=== PATIENT | female | born 1990 | race Caucasian/White ===

== ENCOUNTER 2018-04-27 10:59 | Emergency (ER) | payer OTHER, SELFPAY ==
[2018-04-27 11:06] VITALS: BP 111/77; PULSE 73; RESP 15; TEMP 36.6; O2SAT 100; BMI 20.1
--- NOTE | 2018-04-27 12:21 | ED.SKABFB ---
HPI - Skin/Abscess/Foreign Bdy <RUDI Gomez - Last Filed: 04/27/18 13:20> General Chief complaint: Skin/Abscess/Foreign Body Stated complaint: RASH ON LEFT SIDE OF FACE Time Seen by Provider: 04/27/18 11:49 Mode of arrival: ambulatory Limitations: no limitations History of Present Illness HPI narrative: lesions to face that started a few days ago, and appear to be getting worse, with yellow crusts, started as dry skin and flaking and now oozing some fluid and getting crusty, never had this before, no pain, no itch, no other spots, only on L side face/cheek complaint: rash Onset (ago): day(s) Location: face Severity: mild Relieving factors: none Exacerbating factors: none Context: none Associated symptoms: denies other symptoms Treatments prior to arrival: OTC topical medication and other (apple cider vinegar) Related Data Previous Rx's Medication Instructions Recorded mupirocin calcium [Bactroban] 1 applictn TOP BID #15 gram 04/27/18 sulfamethoxazole-trimethoprim 1 tab PO BID #14 tab 04/27/18 [Bactrim DS] Allergies Allergy/AdvReac Type Severity Reaction Status Date / Time No Known Drug Allergies Allergy Verified 04/27/18 11:06 Review of Systems <RUDI Gomez - Last Filed: 04/27/18 13:20> Constitutional Reports as per HPI, Reports system reviewed and no additional complaints, except as docu and Denies headache(s) Eyes Reports system reviewed and no additional complaints, except as docu ENT Ears, Nose, Mouth, and Throat: Denies facial pain, Denies headache(s), Denies neck mass, Denies neck pain and Denies nose pain Cardiovascular Denies dyspnea Respiratory Denies dyspnea Musculoskeletal Denies neck pain Integumentary/Breasts Reports as per HPI Neurologic Denies headache(s) Exam <RUDI Gomez - Last Filed: 04/27/18 13:20> Initial Vital Signs Initial Vital Signs: Vital Signs Temperature 98 F 04/27/18 11:06 Pulse Rate 73 04/27/18 11:06 Respiratory Rate 15 04/27/18 11:06 Blood Pressure 111/77 04/27/18 11:06 Pulse Oximetry 100 04/27/18 11:06 Const General: cooperative, healthy appearing, comfortable, well developed and well groomed Nutritional Appearance: average body habitus Orientation: alert, awake and oriented x3 HENMT Head: normal to inspection Ears: hearing grossly normal bilaterally and external ears normal Nose: external nose normal Face and sinus: normal facial exam Teeth and gingiva: dentition normal Eyes General: appearance normal, both eyes and all related structures Eyelids: eyelids normal Conjunctivae: conjunctivae normal Sclera: sclerae normal Cornea: corneas normal Pupils: PERRL Neck Neck: normal visual inspection and full ROM Resp Effort & Inspection: normal respiratory effort and able to speak in complete sentences Back/Spine/Pelvis Cervical Spine: cervical ROM normal Thoracic/Lumbar Spine: thoraco-lumbar ROM normal Skin General: crusts (x2 spots noted to L side of face, cheek bone area, circular with mild erythema and yellow crusts present, macular) Neuro General: alert, awake and oriented x3 Cognition: normal cognition Speech: speech normal Gait: normal gait Motor: muscle tone normal throughout Sensory Exam: no sensory deficits noted Extrem General: normal to inspection and full ROM Psych Appearance: grossly normal and well kempt Mental Status: mental status grossly normal Speech and Movement: speech and movement normal Mood: congruent mood Affect: normal affect Attitude: cooperative Thought Process: normal Thought Content: normal Judgment: judgment good <Mary Conner DO - Last Filed: 04/28/18 07:43> Initial Vital Signs Initial Vital Signs: Vital Signs Temperature 98 F 04/27/18 11:06 Pulse Rate 73 04/27/18 11:06 Respiratory Rate 15 04/27/18 11:06 Blood Pressure 111/77 04/27/18 11:06 Pulse Oximetry 100 04/27/18 11:06 Course <RUDI Gomez - Last Filed: 04/27/18 13:20> Vital Signs - 8 hr 04/27/18 11:06 04/27/18 13:07 Temperature 98 F Pulse Rate 73 75 Respiratory Rate 15 14 Blood Pressure 111/77 Blood Pressure [Right Arm] 102/82 Pulse Oximetry 100 99 <Mary Conner DO - Last Filed: 04/28/18 07:43> Vital Signs - 8 hr 04/27/18 11:06 04/27/18 13:07 Temperature 98 F Pulse Rate 73 75 Respiratory Rate 15 14 Blood Pressure 111/77 Blood Pressure [Right Arm] 102/82 Pulse Oximetry 100 99 MDM - Skin/Abscess/Foreign Bdy <RUDI Gomez - Last Filed: 04/27/18 13:20> Differential Diagnosis Likely abscess of skin or subcutaneous tissue, viral exanthem, cellulitis, eczema, insect bites, impetigo and contact dermatitis Discharge Plan Departure Patient Disposition: Home Clinical Impression: Impetigo Discharge Date/Time: 04/27/18 13:10 Interventions: ED Discharge Assessment Last Done: 04/27/18 13:10 Instructions: You, DI for Impetigo Activity Restrictions/Additional Instructions: Oral antibiotics not medically necessary at this time, given in case you feel wounds are getting worse, as we discussed. Prescriptions: New sulfamethoxazole-trimethoprim [Bactrim DS] 800-160 mg tablet 1 tab PO BID Qty: 14 RF: 0 mupirocin calcium [Bactroban] 2 % cream 1 applictn TOP BID Qty: 15 RF: 0 Referrals: Jostin Pardo MD [Non-Staff] - (in 3-5 days as needed.) <Mary Conner DO - Last Filed: 04/28/18 07:43> Cosign ED Attending Cosignature Attestation: I was immediately available in the department for consultation. Documentation has been reviewed. I agree with assessment and plan.
[2018-04-27 13:07] VITALS: BP 102/82; PULSE 75; RESP 14; O2SAT 99
== END 2018-04-27 13:10 | disposition home or self-care (01) ==
PROVIDERS: Emergency Provider Nurse Practitioner
DX: L01.00 Impetigo, unspecified (principal)
CPT/HCPCS: 99282

== ENCOUNTER → 2018-06-04 15:34 | Outpatient (CLI) | payer OTHER, SELFPAY | DX: Z23 Encounter for immunization (principal) | CPT/HCPCS: 90471; 90686 ==

== ENCOUNTER → 2019-01-22 12:00 | Outpatient (CLI) | payer OTHER, SELFPAY ==
[2019-01-22 12:38] LABS: Add Manual Diff / Slide Review NO; Basophils Absolute Auto 100 /uL (0-100); Basophils Percent Auto 0.9 % (0-2); Eosinophils Absolute Auto 100 /uL (0-450); Hematocrit 40.6 % (36-46); Hemoglobin 14.1 g/dL (12.0-16.0); Lymphocytes Absolute Auto 1900 /uL (1100-4500); Lymphocytes Percent Auto 23.4 % (25-40); Mean Corpuscular HGB Conc 34.7 % (30-36); Mean Corpuscular Hemoglobin 30.6 PG (26-34); Monocytes Absolute Auto 600 /uL (0-900); Monocytes Percent Auto 7.4 % (3-14); Neutrophils Absolute Auto 5400 /uL (1500-7000); Neutrophils Percent Auto 67.3 % (50-75); Platelet Count 254 X10^3/uL (150-400); Red Blood Cell Count 4.61 X10^6/uL (4.0-5.2); Red Cell Distribution Width 12.4 % (11.6-14.8)
[2019-01-22 12:41] LABS: Appearance Urine UA CLOUDY; Bilirubin Urine UA NEGATIVE (NEGATIVE); Color Urine UA YELLOW; Glucose Urine UA NEGATIVE (Negative); Ketones Urine UA NEGATIVE (NEGATIVE); Leukocyte Esterase Urine UA NEGATIVE (NEGATIVE); Nitrite Urine UA NEGATIVE (Negative); Occult Blood Urine UA NEGATIVE (Negative); Protein Urine UA NEGATIVE (Negative); Urobilinogen Urine UA 0.2 E.U./dL (0.2); pH Urine UA 7.5 (4.5-8.0)
[2019-01-22 16:50] LABS: Hepatitis B Surface Antigen NEGATIVE s/c (NEGATIVE); Rubella Antibody IgG 56.2 IU/mL (>15)
[2019-01-22 17:01] LABS: HIV 1 and 2 Antibody NEGATIVE (NEGATIVE); Hep C Virus Ab w/Reflex Quant NEGATIVE s/c (NEGATIVE)
[2019-01-26 22:23] LABS: RPR Screen Nonreactive (Nonreactive)
== END ==
PROVIDERS: PCP Family Medicine; Visit Provider Family Medicine
DX: Z34.81 Encounter for supervision of other normal pregnancy, first trimester (principal)
CPT/HCPCS: 36415; 80055; 81003; 86703; 86787; 86803; 86850; 86900; 86901; 87086

== ENCOUNTER 2019-01-25 15:14 | Emergency (ER) | payer OTHER, SELFPAY ==
[2019-01-25 15:19] VITALS: BP 103/65; PULSE 84; RESP 18; TEMP 36.8; O2SAT 99
--- NOTE | 2019-01-25 15:26 | ED.PREGNANCY ---
HPI - <RUDI Giles - Last Filed: 01/25/19 20:34> General Chief complaint: Vaginal Bleeding Stated complaint: 9 weeks /bleeding Time Seen by Provider: 01/25/19 15:20 Source: patient Mode of arrival: ambulatory Limitations: no limitations History of Present Illness HPI Narrative: A healthy 28-year-old is currently 9 weeks , presents emergency department today complaining of significant vaginal bleeding that suddenly started today with mild abdominal cramping. She states she has saturated 3 pads in the last hour, and thinks she is having a miscarriage. Has associated nausea but this has been consistent throughout the . She reports her last menstrual period was November 22, 2018, she then describes she had experienced some spine, likely implantation bleeding about 4 weeks later. She has a history of a D&C after her last due to retained fragments. Denies any other complications or history of previous miscarriages. She denies any dizziness, weakness, fevers, dysuria, headaches, shortness of breath, chest pain, vomiting or fevers. MD Complaint: vaginal bleeding Onset (ago): hour(s) Pain Consistency: constant Location: pelvis and abdomen Severity: moderate Severity scale (1-10): 4 Quality: Cramping Relieving factors: none Exacerbating factors: none Associated symptoms: nausea Vaginal bleeding: heavy Date of Last Menstrual Period: 11/21/18 Patient : Yes Related Data Home Medications Medication Instructions Recorded Confirmed cholecalciferol (vitamin D3) 5,000 5,000 unit PO DAILY 01/21/19 01/26/19 unit capsule 1 tab PO DAILY 01/21/19 01/26/19 vitamin,calcium,rwkhheci-rfug-[id number] acid tablet Allergies Allergy/AdvReac Type Severity Reaction Status Date / Time gluten AdvReac Intermediate GI upset Verified 01/26/19 15:37 dairy AdvReac Intermediate GI upset Uncoded 01/26/19 15:37 Review of Systems <RUDI Giles - Last Filed: 01/25/19 20:34> Review of Systems REVIEW OF SYSTEMS: GENERAL: Denies fever or chills. HENT: No head trauma, hearing loss or sore throat. EYES: No loss of vision, double vision, eye pain, or irritation. CARDIOVASCULAR: No chest pain or syncope. RESPIRATORY: No shortness of breath or cough. GASTROINTESTINAL: Patient complains of nausea, see HPI. GENITOURINARY: No flank pain or dysuria. Patient complains of vaginal bleeding is currently , see HPI. MUSCULOSKELETAL: No pain, weakness, or deformities. INTEGUMENTARY: No rash, lesions, or pruritus. NEURO: No numbness, tingling, memory loss, or confusion. PSYCH: No behavior or mood changes. PMFSH - <GAIL GilesP - Last Filed: 01/25/19 20:34> Past Medical History Medical history: Reports non-contributory Date of Last Menstrual Period: 11/21/18 Patient : Yes Family history: Reports no significant family history Exam <RUDI Giles - Last Filed: 01/25/19 20:34> Initial Vital Signs Initial Vital Signs: Vital Signs Temperature 98.2 F 01/25/19 15:19 Pulse Rate 84 01/25/19 15:19 Respiratory Rate 18 01/25/19 15:19 Blood Pressure 103/65 01/25/19 15:19 Pulse Oximetry 99 01/25/19 15:19 PHYSICAL EXAMINATION: GENERAL: Well groomed, alert, and cooperative. Patient is tearful during history and exam. Answers questions promptly and appropriately. Vital signs noted. HENT: Normocephalic, atraumatic. EYES: Conjunctiva pink, sclera white, no periorbital swelling. CARDIOVASCULAR: S1 and S2 sounds normal. Regular rate and rhythm, no murmurs, clicks, or bruits. No pedal edema. RESPIRATORY: Normal respiratory rate, trachea midline, airway patent. No stridor, nasal flaring or accessory muscle use. Lungs are clear in all gamb[place] without wheeze, rhonchi, or crackles. GASTROINTESTINAL: Bowel sounds normoactive. Abdomen is soft and non-tender. No organomegaly. MUSCULOSKELETAL: Normal gait and coordination. Equal tone and mass bilaterally. EXTREMITIES: CMS intact. Full range of motion and 5/5 strength to upper and lower extremities SKIN: Warm, dry, soft, appropriate color for ethnicity. No lesions, rashes, or wounds. NEURO: Alert and Oriented X 3. Good coordination. No ataxia, or sensory deficits, or cognitive issues. PSYCH: Appropriate affect and mood. <Mary Conner DO - Last Filed: 01/28/19 07:29> Initial Vital Signs Initial Vital Signs: Vital Signs Temperature 98.2 F 01/25/19 15:19 Pulse Rate 84 01/25/19 15:19 Respiratory Rate 18 01/25/19 15:19 Blood Pressure 103/65 01/25/19 15:19 Pulse Oximetry 99 01/25/19 15:19 Course <RUDI Giles - Last Filed: 01/25/19 20:34> Orders Ordered: ED Orders 01/25/19 15:31 US OB <= 14 weeks fetus Stat 01/25/19 15:40 ABO RH Type Stat Complete Blood Count AUTO DIFF Stat Comprehensive Metabolic Panel Stat HCG Quantitative Stat Reevaluation(s) Reevaluation #1: After ultrasound, patient stated that the the bleeding slowed significantly. Discussed with patient in detail about labs and ultrasound results before discharge. Explained that the ultrasound can see a live at this time, however bleeding does better at risk for miscarriage. Additionally, her HCG levels remained within normal limits. Discussed in detail the importance of follow-up, patient states she will call her doctor Saturday morning. Patient understood strict return precautions such as excessive bleeding, feeling dizzy or disoriented, or having significant abdominal cramping. Consultations Consultation #1: Patient staffed with Dr. Conner. Vital Signs - 8 hr 01/25/19 15:19 01/25/19 18:15 Temperature 98.2 F Pulse Rate 84 90 Respiratory Rate 18 17 Blood Pressure 103/65 104/64 Pulse Oximetry 99 99 <Mary Conner DO - Last Filed: 01/28/19 07:29> Orders Ordered: ED Orders 01/25/19 15:31 US OB <= 14 weeks fetus Stat 01/25/19 15:40 ABO RH Type Stat Complete Blood Count AUTO DIFF Stat Comprehensive Metabolic Panel Stat HCG Quantitative Stat Vital Signs - 8 hr 01/25/19 15:19 01/25/19 18:15 Temperature 98.2 F Pulse Rate 84 90 Respiratory Rate 18 17 Blood Pressure 103/65 104/64 Pulse Oximetry 99 99 MDM - OB/Uterine Contractions <RUDI Giles - Last Filed: 01/25/19 20:34> Medical Records Attestation: I reviewed the patient's medical records. Lab Data Attestation: I reviewed the patient's lab results. Result diagrams: 01/25/19 15:40 06/30/19 15:40 Lab Results 01/25/19 01/25/19 01/25/19 Range/Units 15:40 15:40 15:40 WBC 6.8 (4.5-11.0) X10^3/uL RBC 4.38 (4.0-5.2) X10^6/uL Hgb 13.2 (12.0-16.0) g/dL Hct 38.2 (36-46) % MCV 87.1 (80-100) fL MCH 30.0 (26-34) PG MCHC 34.4 (30-36) % RDW 12.3 (11.6-14.8) % Plt Count 269 (150-400) X10^3/uL Neut % (Auto) 63.4 (50-75) % Lymph % (Auto) 27.6 (25-40) % [facility] % (Auto) 7.6 (3-14) % Eos % (Auto) 0.7 L (2-4) % Baso % (Auto) 0.7 (0-2) % Neut # (Auto) 4300 (1750-1653) /uL Lymph # (Auto) 1900 (3400-2065) /uL [facility] # (Auto) 500 (0-900) /uL Eos # (Auto) 0 (0-450) /uL Baso # (Auto) 0 (0-100) /uL Sodium 138 (137-145) mmol/L Potassium 3.8 (3.4-5.1) mmol/L Chloride 105 (98-107) mmol/L Carbon Dioxide 22 (22-32) mmol/L BUN 9 (7-17) mg/dL Creatinine 0.50 L (0.52-1.04) mg/dL Estimated GFR > 60.0 (>60) mL/min BUN/Creatinine Ratio 18.0 (6-22) Glucose 90 (70-100) mg/dL Calcium 9.7 (8.4-10.2) mg/dL Total Bilirubin 0.7 (0.2-1.3) mg/dL AST 19 (14-36) IU/L ALT 24 (9-52) IU/L Alkaline Phosphatase 43 (38-126) U/L Total Protein 7.5 (6.3-8.2) g/dL Albumin 4.5 (3.5-5.0) g/dL Globulin 3.0 (1.7-4.1) g/dL Albumin/Globulin Ratio 1.5 (1.0-2.8) HCG, Quant 984983 mIU/mL Blood Type O Positive Urine Dip Bedside Urine Glucose Negative Bedside Urine Bilirubin - Negative Bedside Urine Ketone - Negative Urine Specific Gile 1.010 Bedside Urine Occult Blood +++ Bedside Urine pH 6.0 Bedside Urine Protein - Negative Bedside Urine Urobilinogen - Negative Bedside Urine Nitrite - Negative Bedside Urine Leukocytes - Negative Esterase Imaging Data US OB Pelvic: Radiologist's impression: [address] [address] Ultrasound Report Signed Patient: Gunjan Rodriguez MMR#: [id number] : 1990Acct:[id number] Age/Sex: 28 te of Service: 01/25/19 Loc: ED Accession Number: [id number] Procedure: US OB <= 14 weeks fetus Ordering Provider: Merle Joyner PROCEDURE: US OB <= 14 WEEKS FETUS INDICATIONS: VAGINAL BLEEDING, 9WKS PREG OUTSIDE/PRIOR DATING DATA: Last menstrual period (LMP): 11/22/18. LMP-based estimated date of delivery (SACHIN): 08/29/19. First dating scan (date and location): 01/25/19. Estimated date of delivery (SACHIN) from first dating scan: 08/29/19. TECHNIQUE: Real-time scanning was performed of the fetus and maternal pelvic organs, with image documentation. Endovaginal scanning was also performed to better visualize the fetus and maternal ovaries. COMPARISON: None. FINDINGS: Embryo: A single intrauterine gestational sac is identified, which contains a well-visualized pole that has a crown-rump length of 2.4 cm (9 weeks one day). A yolk sac is faintly visualized. heart motion is detected at 187 beats per minute. A moderate-sized subchorionic hemorrhage is identified along the gestational sac that measures 7.3 x 2.5 cm. Maternal organs: Ovaries demonstrates a corpus luteum on the left.. Limited images through the kidneys demonstrate no hydronephrosis. IMPRESSION: 1. Single live intrauterine at 9 weeks one day (sonographic SACHIN 08/29/19) is concordant with the LMP due date. 2. Moderate-sized subchorionic hemorrhage. The need for followup imaging may be determined clinically. Dictated by: Andrew Brown M.D. on 01/25/2019 at 16:24 Approved by: Andrew Brown M.D. on 01/25/2019 at 16:26 [facility] Narrative Medical decision making narrative: I suspect a subchorionic bleed due to ultrasound results and the patient history, she appears have a live at this time. However, I cannot rule out a miscarriage at this time and a subchorionic bleed less than 9 weeks can put her at risk for a miscarriage. This was extensively explained the patient. It is reassuring that her HCG levels remain within normal limits, and her bleeding slowed. Close follow-up was advised and strict return precautions were given. Additionally, pelvic rest was advised until follow-up. Patient's blood test was O positive, no RhoGAM was given because of this. <Mary Conner, DO - Last Filed: 01/28/19 07:29> Lab Data Lab Results 01/25/19 01/25/19 01/25/19 Range/Units 15:40 15:40 15:40 WBC 6.8 (4.5-11.0) X10^3/uL RBC 4.38 (4.0-5.2) X10^6/uL Hgb 13.2 (12.0-16.0) g/dL Hct 38.2 (36-46) % MCV 87.1 (80-100) fL MCH 30.0 (26-34) PG MCHC 34.4 (30-36) % RDW 12.3 (11.6-14.8) % Plt Count 269 (150-400) X10^3/uL Neut % (Auto) 63.4 (50-75) % Lymph % (Auto) 27.6 (25-40) % [facility] % (Auto) 7.6 (3-14) % Eos % (Auto) 0.7 L (2-4) % Baso % (Auto) 0.7 (0-2) % Neut # (Auto) 4300 (8702-2701) /uL Lymph # (Auto) 1900 (4438-1238) /uL [facility] # (Auto) 500 (0-900) /uL Eos # (Auto) 0 (0-450) /uL Baso # (Auto) 0 (0-100) /uL Sodium 138 (137-145) mmol/L Potassium 3.8 (3.4-5.1) mmol/L Chloride 105 (98-107) mmol/L Carbon Dioxide 22 (22-32) mmol/L BUN 9 (7-17) mg/dL Creatinine 0.50 L (0.52-1.04) mg/dL Estimated GFR > 60.0 (>60) mL/min BUN/Creatinine Ratio 18.0 (6-22) Glucose 90 (70-100) mg/dL Calcium 9.7 (8.4-10.2) mg/dL Total Bilirubin 0.7 (0.2-1.3) mg/dL AST 19 (14-36) IU/L ALT 24 (9-52) IU/L Alkaline Phosphatase 43 (38-126) U/L Total Protein 7.5 (6.3-8.2) g/dL Albumin 4.5 (3.5-5.0) g/dL Globulin 3.0 (1.7-4.1) g/dL Albumin/Globulin Ratio 1.5 (1.0-2.8) HCG, Quant 017328 mIU/mL Blood Type O Positive Urine Dip Bedside Urine Glucose Negative Bedside Urine Bilirubin - Negative Bedside Urine Ketone - Negative Urine Specific Gile 1.010 Bedside Urine Occult Blood +++ Bedside Urine pH 6.0 Bedside Urine Protein - Negative Bedside Urine Urobilinogen - Negative Bedside Urine Nitrite - Negative Bedside Urine Leukocytes - Negative Esterase Discharge Plan Departure Patient Disposition: Home Clinical Impression: Threatened miscarriage, Vaginal bleeding Discharge Date/Time: 01/25/19 18:17 Interventions: ED Discharge Assessment Last Done: 01/25/19 18:15 Activity Restrictions/Additional Instructions: Thank you for entrusting me with your care today. As discussed, your ultrasound shows a live intrauterine at 9 weeks and 1 day, the source of your bleeding is a moderate-sized subchorionic hemorrhage. As we discussed, this may evolve into a miscarriage but also may evolve into a healthy . Pelvic rest is recommended until the bleeding has subsided, do not do anything strenuous for the next few days until follow-up. Call your doctor tomorrow to let them know that you have been in the emergency department, follow up with them as soon as possible. Return to the emergency department if you experience dizziness, chest pain, shortness of breath, significant vaginal bleeding over a long period of time, or syncope. Prescriptions: No Action prenat.vits,rory,ymg-qnrs-zftfc tablet 1 tab PO DAILY RF: 0 cholecalciferol (vitamin D3) 5,000 unit capsule 5,000 unit PO DAILY RF: 0 Referrals: Atif Boone MD [Primary Care Provider] - Stand Alone Forms: Work Release Note <Mary Conner DO - Last Filed: 01/28/19 07:29> Cosign ED Attending Cosignature Attestation: I was immediately available in the department for consultation. Documentation has been reviewed. I agree with assessment and plan.
--- NOTE | 2019-01-25 15:29 | ED_ITS ---
HPI - <RUDI Giles - Last Filed: 01/25/19 20:34> General Chief complaint: Vaginal Bleeding Stated complaint: 9 weeks /bleeding Time Seen by Provider: 01/25/19 15:20 Source: patient Mode of arrival: ambulatory Limitations: no limitations History of Present Illness HPI Narrative: A healthy 28-year-old is currently 9 weeks , presents emergency department today complaining of significant vaginal bleeding that suddenly started today with mild abdominal cramping. She states she has saturated 3 pads in the last hour, and thinks she is having a miscarriage. Has associated nausea but this has been consistent throughout the . She reports her last menstrual period was November 22, 2018, she then describes she had experienced some spine, likely implantation bleeding about 4 weeks later. She has a history of a D&C after her last due to retained fragments. Denies any other complications or history of previous miscarriages. She denies any dizziness, weakness, fevers, dysuria, headaches, shortness of breath, chest pain, vomiting or fevers. MD Complaint: vaginal bleeding Onset (ago): hour(s) Pain Consistency: constant Location: pelvis and abdomen Severity: moderate Severity scale (1-10): 4 Quality: Cramping Relieving factors: none Exacerbating factors: none Associated symptoms: nausea Vaginal bleeding: heavy Date of Last Menstrual Period: 11/21/18 Patient : Yes Related Data Home Medications Medication Instructions Recorded Confirmed cholecalciferol (vitamin D3) 5,000 5,000 unit PO DAILY 01/21/19 01/26/19 unit capsule 1 tab PO DAILY 01/21/19 01/26/19 vitamin,calcium,[id number] acid tablet Allergies Allergy/AdvReac Type Severity Reaction Status Date / Time gluten AdvReac Intermediate GI upset Verified 01/26/19 15:37 dairy AdvReac Intermediate GI upset Uncoded 01/26/19 15:37 Review of Systems <RUDI Giles - Last Filed: 01/25/19 20:34> Review of Systems REVIEW OF SYSTEMS: GENERAL: Denies fever or chills. HENT: No head trauma, hearing loss or sore throat. EYES: No loss of vision, double vision, eye pain, or irritation. CARDIOVASCULAR: No chest pain or syncope. RESPIRATORY: No shortness of breath or cough. GASTROINTESTINAL: Patient complains of nausea, see HPI. GENITOURINARY: No flank pain or dysuria. Patient complains of vaginal bleeding is currently , see HPI. MUSCULOSKELETAL: No pain, weakness, or deformities. INTEGUMENTARY: No rash, lesions, or pruritus. NEURO: No numbness, tingling, memory loss, or confusion. PSYCH: No behavior or mood changes. PMFSH - <GAIL GilesP - Last Filed: 01/25/19 20:34> Past Medical History Medical history: Reports non-contributory Date of Last Menstrual Period: 11/21/18 Patient : Yes Family history: Reports no significant family history Exam <RUDI Giles - Last Filed: 01/25/19 20:34> Initial Vital Signs Initial Vital Signs: Vital Signs Temperature 98.2 F 01/25/19 15:19 Pulse Rate 84 01/25/19 15:19 Respiratory Rate 18 01/25/19 15:19 Blood Pressure 103/65 01/25/19 15:19 Pulse Oximetry 99 01/25/19 15:19 PHYSICAL EXAMINATION: GENERAL: Well groomed, alert, and cooperative. Patient is tearful during history and exam. Answers questions promptly and appropriately. Vital signs noted. HENT: Normocephalic, atraumatic. EYES: Conjunctiva pink, sclera white, no periorbital swelling. CARDIOVASCULAR: S1 and S2 sounds normal. Regular rate and rhythm, no murmurs, clicks, or bruits. No pedal edema. RESPIRATORY: Normal respiratory rate, trachea midline, airway patent. No stridor, nasal flaring or accessory muscle use. Lungs are clear in all [place] without wheeze, rhonchi, or crackles. GASTROINTESTINAL: Bowel sounds normoactive. Abdomen is soft and non-tender. No organomegaly. MUSCULOSKELETAL: Normal gait and coordination. Equal tone and mass bilaterally. EXTREMITIES: CMS intact. Full range of motion and 5/5 strength to upper and lower extremities SKIN: Warm, dry, soft, appropriate color for ethnicity. No lesions, rashes, or wounds. NEURO: Alert and Oriented X 3. Good coordination. No ataxia, or sensory deficits, or cognitive issues. PSYCH: Appropriate affect and mood. <Mary Conner DO - Last Filed: 01/28/19 07:29> Initial Vital Signs Initial Vital Signs: Vital Signs Temperature 98.2 F 01/25/19 15:19 Pulse Rate 84 01/25/19 15:19 Respiratory Rate 18 01/25/19 15:19 Blood Pressure 103/65 01/25/19 15:19 Pulse Oximetry 99 01/25/19 15:19 Course <RUDI Giles - Last Filed: 01/25/19 20:34> Orders Ordered: ED Orders 01/25/19 15:31 US OB <= 14 weeks fetus Stat 01/25/19 15:40 ABO RH Type Stat Complete Blood Count AUTO DIFF Stat Comprehensive Metabolic Panel Stat HCG Quantitative Stat Reevaluation(s) Reevaluation #1: After ultrasound, patient stated that the the bleeding slowed significantly. Discussed with patient in detail about labs and ultrasound results before discharge. Explained that the ultrasound can see a live at this time, however bleeding does better at risk for miscarriage. Additionally, her HCG levels remained within normal limits. Discussed in detail the importance of follow-up, patient states she will call her doctor Saturday morning. Patient understood strict return precautions such as excessive bl eeding, feeling dizzy or disoriented, or having significant abdominal cramping. Consultations Consultation #1: Patient staffed with Dr. Conner. Vital Signs - 8 hr 01/25/19 15:19 01/25/19 18:15 Temperature 98.2 F Pulse Rate 84 90 Respiratory Rate 18 17 Blood Pressure 103/65 104/64 Pulse Oximetry 99 99 <Mary Conner DO - Last Filed: 01/28/19 07:29> Orders Ordered: ED Orders 01/25/19 15:31 US OB <= 14 weeks fetus Stat 01/25/19 15:40 ABO RH Type Stat Complete Blood Count AUTO DIFF Stat Comprehensive Metabolic Panel Stat HCG Quantitative Stat Vital Signs - 8 hr 01/25/19 15:19 01/25/19 18:15 Temperature 98.2 F Pulse Rate 84 90 Respiratory Rate 18 17 Blood Pressure 103/65 104/64 Pulse Oximetry 99 99 MDM - OB/Uterine Contractions <RUDI Giles - Last Filed: 01/25/19 20:34> Medical Records Attestation: I reviewed the patient's medical records. Lab Data Attestation: I reviewed the patient's lab results. Result diagrams: 01/25/19 15:40 01/25/19 15:40 Lab Results 01/25/19 01/25/19 01/25/19 Range/Units 15:40 15:40 15:40 WBC 6.8 (4.5-11.0) X10^3/uL RBC 4.38 (4.0-5.2) X10^6/uL Hgb 13.2 (12.0-16.0) g/dL Hct 38.2 (36-46) % MCV 87.1 (80-100) fL MCH 30.0 (26-34) PG MCHC 34.4 (30-36) % RDW 12.3 (11.6-14.8) % Plt Count 269 (150-400) X10^3/uL Neut % (Auto) 63.4 (50-75) % Lymph % (Auto) 27.6 (25-40) % Warren % (Auto) 7.6 (3-14) % Eos % (Auto) 0.7 L (2-4) % Baso % (Auto) 0.7 (0-2) % Neut # (Auto) 4300 (1912-0682) /uL Lymph # (Auto) 1900 (3747-4629) /uL Warren # (Auto) 500 (0-900) /uL Eos # (Auto) 0 (0-450) /uL Baso # (Auto) 0 (0-100) /uL Sodium 138 (137-145) mmol/L Potassium 3.8 (3.4-5.1) mmol/L Chloride 105 (98-107) mmol/L Carbon Dioxide 22 (22-32) mmol/L BUN 9 (7-17) mg/dL Creatinine 0.50 L (0.52-1.04) mg/dL Estimated GFR > 60.0 (>60) mL/min BUN/Creatinine Ratio 18.0 (6-22) Glucose 90 (70-100) mg/dL Calcium 9.7 (8.4-10.2) mg/dL Total Bilirubin 0.7 (0.2-1.3) mg/dL AST 19 (14-36) IU/L ALT 24 (9-52) IU/L Alkaline Phosphatase 43 (38-126) U/L Total Protein 7.5 (6.3-8.2) g/dL Albumin 4.5 (3.5-5.0) g/dL Globulin 3.0 (1.7-4.1) g/dL Albumin/Globulin Ratio 1.5 (1.0-2.8) HCG, Quant 191165 mIU/mL Blood Type O Positive Urine Dip Bedside Urine Glucose Negative Bedside Urine Bilirubin - Negative Bedside Urine Ketone - Negative Urine Specific [place] 1.010 Bedside Urine Occult Blood +++ Bedside Urine pH 6.0 Bedside Urine Protein - Negative Bedside Urine Urobilinogen - Negative Bedside Urine Nitrite - Negative Bedside Urine Leukocytes - Negative Esterase Imaging Data US OB Pelvic: Radiologist's impression: [address] [address] Ultrasound Report Signed Patient: Gunjan Rodriguez MMR#: [id number] : 1990Acct:[id number] Age/Sex: 28 te of Service: 01/25/19 Loc: ED Accession Number: [id number] Procedure: US OB <= 14 weeks fetus Ordering Provider: Merle Joyner PROCEDURE: US OB <= 14 WEEKS FETUS INDICATIONS: VAGINAL BLEEDING, 9WKS PREG OUTSIDE/PRIOR DATING DATA: Last menstrual period (LMP): 11/22/18. LMP-based estimated date of delivery (SACHIN): 08/29/19. First dating scan (date and location): 01/25/19. Estimated date of delivery (SACHIN) from first dating scan: 08/29/19. TECHNIQUE: Real-time scanning was performed of the fetus and maternal pelvic organs, with image documentation. Endovaginal scanning was also performed to better visualize the fetus and maternal ovaries. COMPARISON: None. FINDINGS: Embryo: A single intrauterine gestational sac is identified, which contains a well-visualized pole that has a crown-rump length of 2.4 cm (9 weeks one day). A yolk sac is faintly visualized. heart motion is detected at 187 beats per minute. A moderate-sized subchorionic hemorrhage is identified along the gestational sac that measures 7.3 x 2.5 cm. Maternal organs: Ovaries demonstrates a corpus luteum on the left.. Limited images through the kidneys demonstrate no hydronephrosis. IMPRESSION: 1. Single live intrauterine at 9 weeks one day (sonographic SACHIN 08/29/19) is concordant with the LMP due date. 2. Moderate-sized subchorionic hemorrhage. The need for followup imaging may be determined clinically. Dictated by: Andrew Brown M.D. on 01/25/2019 at 16:24 Approved by: Andrew Brown M.D. on 01/25/2019 at 16:26 MDM Narrative Medical decision making narrative: I suspect a subchorionic bleed due to ultrasound results and the patient history, she appears have a live at this time. However, I cannot rule out a miscarriage at this time and a subchorionic bleed less than 9 weeks can put her at risk for a miscarriage. This was extensively explained the patient. It is reassuring that her HCG levels remain within normal limits, and her bleeding slowed. Close follow-up was advised and strict return precautions were given. Additionally, pelvic rest was advised until follow-up. Patient's blood test was O positive, no RhoGAM was given because of this. <Mary Conner, DO - Last Filed: 01/28/19 07:29> Lab Data Lab Results 01/25/19 01/25/19 01/25/19 Range/Units 15:40 15:40 15:40 WBC 6.8 (4.5-11.0) X10^3/uL RBC 4.38 (4.0-5.2) X10^6/uL Hgb 13.2 (12.0-16.0) g/dL Hct 38.2 (36-46) % MCV 87.1 (80-100) fL MCH 30.0 (26-34) PG MCHC 34.4 (30-36) % RDW 12.3 (11.6-14.8) % Plt Count 269 (150-400) X10^3/uL Neut % (Auto) 63.4 (50-75) % Lymph % (Auto) 27.6 (25-40) % Warren % (Auto) 7.6 (3-14) % Eos % (Auto) 0.7 L (2-4) % Baso % (Auto) 0.7 (0-2) % Neut # (Auto) 4300 (8677-3350) /uL Lymph # (Auto) 1900 (6625-8398) /uL Warren # (Auto) 500 (0-900) /uL Eos # (Auto) 0 (0-450) /uL Baso # (Auto) 0 (0-100) /uL Sodium 138 (137-145) mmol/L Potassium 3.8 (3.4-5.1) mmol/L Chloride 105 (98-107) mmol/L Carbon Dioxide 22 (22-32) mmol/L BUN 9 (7-17) mg/dL Creatinine 0.50 L (0.52-1.04) mg/dL Estimated GFR > 60.0 (>60) mL/min BUN/Creatinine Ratio 18.0 (6-22) Glucose 90 (70-100) mg/dL Calcium 9.7 (8.4-10.2) mg/dL Total Bilirubin 0.7 (0.2-1.3) mg/dL AST 19 (14-36) IU/L ALT 24 (9-52) IU/L Alkaline Phosphatase 43 (38-126) U/L Total Protein 7.5 (6.3-8.2) g/dL Albumin 4.5 (3.5-5.0) g/dL Globulin 3.0 (1.7-4.1) g/dL Albumin/Globulin Ratio 1.5 (1.0-2.8) HCG, Quant 573427 mIU/mL Blood Type O Positive Urine Dip Bedside Urine Glucose Negative Bedside Urine Bilirubin - Negative Bedside Urine Ketone - Negative Urine Specific [place] 1.010 Bedside Urine Occult Blood +++ Bedside Urine pH 6.0 Bedside Urine Protein - Negative Bedside Urine Urobilinogen - Negative Bedside Urine Nitrite - Negative Bedside Urine Leukocytes - Negative Esterase Discharge Plan Departure Patient Disposition: Home Clinical Impression: Threatened miscarriage, Vaginal bleeding Discharge Date/Time: 01/25/19 18:17 Interventions: ED Discharge Assessment Last Done: 01/25/19 18:15 Activity Restrictions/Additional Instructions: Thank you for entrusting me with your care today. As discussed, your ultrasound shows a live intrauterine at 9 weeks and 1 day, the source of your bleeding is a moderate-sized subchorionic hemorrhage. As we discussed, this may evolve into a miscarriage but also may evolve into a healthy . Pelvic rest is recommended until the bleeding has subsided, do not do anything strenuous for the next few days until follow-up. Call your doctor tomorrow to let them know that you have been in the emergency department, follow up with them as soon as possible. Return to the emergency department if you experience dizziness, chest pain, shortness of breath, significant vaginal bleeding over a long period of time, or syncope. Prescriptions: No Action prenat.vits,rory,zuh-czfb-ofjri tablet 1 tab PO DAILY RF: 0 cholecalciferol (vitamin D3) 5,000 unit capsule 5,000 unit PO DAILY RF: 0 Referrals: Atif Boone MD [Primary Care Provider] - Stand Alone Forms: Work Release Note <Mary Conner DO - Last Filed: 01/28/19 07:29> Cosign ED Attending Cosignature Attestation: I was immediately available in the department for consultation. Documentation has been reviewed. I agree with assessment and plan.
[2019-01-25 15:51] LABS: Add Manual Diff / Slide Review NO; Basophils Absolute Auto 0 /uL (0-100); Basophils Percent Auto 0.7 % (0-2); Eosinophils Absolute Auto 0 /uL (0-450); Eosinophils Percent Auto 0.7 % (2-4); Hematocrit 38.2 % (36-46); Hemoglobin 13.2 g/dL (12.0-16.0); Lymphocytes Absolute Auto 1900 /uL (1100-4500); Lymphocytes Percent Auto 27.6 % (25-40); Mean Corpuscular HGB Conc 34.4 % (30-36); Mean Corpuscular Volume 87.1 fL (80-100); Monocytes Absolute Auto 500 /uL (0-900); Monocytes Percent Auto 7.6 % (3-14); Neutrophils Absolute Auto 4300 /uL (1500-7000); Neutrophils Percent Auto 63.4 % (50-75); Platelet Count 269 X10^3/uL (150-400); Red Blood Cell Count 4.38 X10^6/uL (4.0-5.2); Red Cell Distribution Width 12.3 % (11.6-14.8); White Blood Cell Count 6.8 X10^3/uL (4.5-11.0)
[2019-01-25 16:04] LABS: Alanine Aminotransferase 24 IU/L (9-52); Albumin 4.5 g/dL (3.5-5.0); Albumin Globulin Ratio 1.5 (1.0-2.8); Alkaline Phosphatase 43 U/L (38-126); Aspartate Aminotransferase 19 IU/L (14-36); Bilirubin Total 0.7 mg/dL (0.2-1.3); Blood Urea Nitrogen 9 mg/dL (7-17); Calcium 9.7 mg/dL (8.4-10.2); Carbon Dioxide 22 mmol/L (22-32); Chloride 105 mmol/L (98-107); Estimated Glomerular Filt Rate > 60.0 mL/min (>60); Glucose 90 mg/dL (70-100); HEMOLYSIS < 15 (0-50); Potassium 3.8 mmol/L (3.4-5.1); Sodium 138 mmol/L (137-145); Total Protein 7.5 g/dL (6.3-8.2)
[2019-01-25 16:45] LABS: HCG Quantitative /Beta subunit 115570 mIU/mL
[2019-01-25 18:15] VITALS: BP 104/64; PULSE 90; RESP 17; O2SAT 99
== END 2019-01-25 18:17 | disposition home or self-care (01) ==
PROVIDERS: Emergency Provider Nurse Practitioner; PCP Family Medicine
DX: O20.0 Threatened abortion (principal); O20.9 Hemorrhage in early pregnancy, unspecified; Z3A.09 9 weeks gestation of pregnancy
CPT/HCPCS: 36415; 76801; 80053; 81003; 84702; 85025; 86900; 86901; 99282; 99284

== ENCOUNTER → 2019-01-30 14:45 | Outpatient (CLI) | payer OTHER, SELFPAY ==
--- NOTE | 2019-01-30 14:46 | DI.US.S_ITS ---
PROCEDURE: US OB <= 14 WEEKS FETUS INDICATIONS: SUBCHORIONIC HEMORRHAGE OUTSIDE/PRIOR DATING DATA: Last menstrual period (LMP): 11/22/18. LMP-based estimated date of delivery (SACHIN): 08/29/19. First dating scan (date and location): 01/25/19. Estimated date of delivery (SACHIN) from first dating scan: 08/29/19.. TECHNIQUE: Real-time scanning was performed of the fetus and maternal pelvic organs, with image documentation. Endovaginal scanning was also performed to better visualize the fetus and maternal ovaries. COMPARISON: [facility], OB <= 14 WEEKS FETUS, 01/25/2019, 16:55. FINDINGS: Embryo: [place]-rump length measures 3.3 cm corresponding to 10 weeks 1 day. Heart rate measures 169 beats per minute. Subchorionic hematoma increased in size now measuring 8.3 x 3.6 x 4.7 cm. Measurement variability in dating: +/- 4 weeks by LMP, +/- 7 days by mean sac diameter (use before 6 weeks gestation if crown-rump length not able to be measured), +/- 5 days by crown-rump length (up to 8 weeks 6 days gestation), +/- 7 days by crown-rump length (up to 13 weeks 6 days gestation). Maternal organs: Ovaries within normal limits, with corpus luteal cyst on the left. Limited images through the kidneys demonstrate no hydronephrosis. IMPRESSION: 1. Single living IUP demonstrated an interval growth is normal. 2. Interval increase in size of subchorionic hematoma compared to prior examination. Dictated by: Jorge Moore [facility] Interpreted: Oscar Rudolph MD on 01/30/2019 at 16:30 Approved by: Oscar Rudolph M.D. on 01/30/2019 at 17:31
== END ==
PROVIDERS: PCP Family Medicine; Visit Provider Family Medicine
DX: O20.0 Threatened abortion (principal); O41.8X10 Other specified disorders of amniotic fluid and membranes, first trimester, not applicable or unspecified; Z3A.10 10 weeks gestation of pregnancy
CPT/HCPCS: 76801

== ENCOUNTER → 2019-02-10 09:44 | Outpatient (CLI) | payer OTHER, SELFPAY ==
--- NOTE | 2019-02-10 09:46 | DI.US.S_ITS ---
PROCEDURE: US OB <= 14 WEEKS FETUS INDICATIONS: SUBCHORIONIC HEMORRHAGE OUTSIDE/PRIOR DATING DATA: Last menstrual period (LMP): 11/22/18. LMP-based estimated date of delivery (SACHIN): 08/29/19. First dating scan (date and location): 01/25/19, [facility]. Estimated date of delivery (SACHIN) from first dating scan: 08/29/19. TECHNIQUE: Real-time scanning was performed of the fetus and maternal pelvic organs, with image documentation. COMPARISON: [facility], , OB <= 14 WEEKS FETUS, 01/30/2019, 15:04. FINDINGS: Embryo: [place]-rump length is 5.3 cm for a gestational age of 12 weeks, zero days. There is a 8.2 x 2.0 x 8.8 cm raysa-gestational bleed which is increased from 4.6 x 3.6 x 8.3 cm on the comparison study dated 01/30/19. Measurement variability in dating: +/- 4 weeks by LMP, +/- 7 days by mean sac diameter (use before 6 weeks gestation if crown-rump length not able to be measured), +/- 5 days by crown-rump length (up to 8 weeks 6 days gestation), +/- 7 days by crown-rump length (up to 13 weeks 6 days gestation). Maternal organs: Ovaries are not visualized. Limited images through the kidneys demonstrate no hydronephrosis. IMPRESSION: 1. Single live intrauterine gestation with a gestational age of 12 weeks, zero days by crown-rump length. 2. Increase size of the raysa-gestational bleed when compared with the prior ultrasound dated 01/30/19. Dictated by: Salma Pond M.D. on 02/10/2019 at 14:18 Approved by: Salma Pond M.D. on 02/10/2019 at 14:32
== END ==
PROVIDERS: PCP Family Medicine; Visit Provider Family Medicine
DX: O20.0 Threatened abortion (principal); Z3A.12 12 weeks gestation of pregnancy
CPT/HCPCS: 76801

== ENCOUNTER → 2019-03-04 14:17 | Outpatient (CLI) | payer OTHER, SELFPAY ==
--- NOTE | 2019-03-04 14:20 | DI.US.S_ITS ---
PROCEDURE: US OB LIMITED INDICATIONS: FOLLOW-UP SUBCHORIONIC HEMORRHAGE OUTSIDE/PRIOR DATING DATA: Last menstrual period (LMP): 11/22/18. LMP-based estimated date of delivery (SACHIN): 08/29/19. First dating scan (date and location): 01/25/19. Estimated date of delivery (SACHIN) from first dating scan: 08/29/19. TECHNIQUE: Real-time scanning was performed of the fetus, with image documentation and biometric measurements. Endovaginal scanning: No COMPARISON: [facility], , OB <= 14 WEEKS FETUS, 02/10/2019, 9:54. FINDINGS: General: A single living intrauterine gestation is present. Presentation: Variable. Placenta: Placental position is anterior, and low lying with the inferior margin 1.6 cm above the internal cervical os. Subchorionic hematoma is slightly decreased in size now measuring 5.2 x 1.9 8.3 cm compared to 8.2 x 2.0 x 8.8 cm on prior examination. Amniotic fluid index: Subjectively normal. heart rate: 145 beats per minute. Maternal cervical canal: 3.5 cm long. Other: Not applicable. IMPRESSION: Single living IUP redemonstrated and subchorionic hematoma has decreased in size. Low lying placenta. Followup recommended. Dictated by: Jorge Moore [facility] Interpreted: Geraldine Feldman MD on 03/04/2019 at 14:52 Approved by: Geraldine Feldman MD, PhD on 03/04/2019 at 16:14
== END ==
PROVIDERS: PCP Family Medicine; Visit Provider Family Medicine
DX: O43.892 Other placental disorders, second trimester (principal); Z3A.14 14 weeks gestation of pregnancy
CPT/HCPCS: 76815

== ENCOUNTER → 2019-04-07 07:50 | Outpatient (CLI) | payer OTHER, SELFPAY ==
--- NOTE | 2019-04-07 07:51 | DI.US.S_ITS ---
PROCEDURE: US OB >= 14 WEEKS FETUS INDICATIONS: ANATOMY SCAN OUTSIDE/PRIOR DATING DATA: Last menstrual period (LMP): 11/22/18. LMP-based estimated date of delivery (SACHIN): 08/29/19. First dating scan (date and location): 01/25/19. Estimated date of delivery (SACHIN) from first dating scan: 08/29/19.. TECHNIQUE: Real-time scanning was performed of the fetus, with image documentation and biometric measurements. Endovaginal scanning: No COMPARISON: [facility], OB LIMITED, 03/04/2019, 14:25. FINDINGS: General: A single living intrauterine gestation is present. Presentation: Breech. Placenta: Placental position is anterior, without previa. Lower uterine segment subchorionic hematoma decreased in size now measuring 5.5 x 5.3 x 1.9 cm. Amniotic fluid index: 14.6 cm, normal range is 5-24 cm. heart rate: 147 beats per minute. Maternal cervical canal: 3.5 cm long. Normal lower limit is 2.5 cm. biometrics: Biparietal diameter: 19 weeks 3 days Head circumference: 19 weeks 2 days Abdominal circumference: 20 weeks 2 days Femur length: 19 weeks 2 days Estimated gestational age from initial scan: 19 weeks 3 days Composite gestational age from present scan: 19 weeks 4 days Estimated weight and percentile: 311 g; 65th percentile Measurement variability for biometric dating: +/- 7 days from 14 weeks to 15 weeks 6 days gestation, +/- 10 days from 16 weeks to 21 weeks 6 days gestation, +/- 2 weeks from 22 weeks to 27 weeks 6 days gestation, +/- 3 weeks for 28 weeks gestation or later. weight reference: 4500 g or EFW >90/95% is considered macrosomia or large for gestational age. EFW <10% is small for gestational age. EFW 5% or less is considered intra-uterine growth restriction. Anatomic survey: Neuro: Ventricles are non-dilated at less than 10 mm. Cisterna magna is normal at 3-11 mm. Cerebellum is normal in size and morphology. Right chorioplexus cyst. Nuchal skin fold: Normal at less than 6 mm between 14-21 weeks gestational age. Face: Nose and lips, facial profile are normal. Spine: Not well-visualized. Heart: 4-chambered heart is present, with normal ventricular outflow tracts. Diaphragm: Diaphragm is intact. Stomach: Left-sided stomach is present. Debris within the stomach. 3 mm calcification adjacent to the stomach. Kidneys: Mild pyelectasis with the renal pelves measuring up to 4.4 mm. Cord: 3-vessel cord has orthotopic insertion. Bladder: Normal in size. Extremities: All 4 extremities identified. IMPRESSION: 1. Normal interval growth. 2. Small choroid plexus cyst present: in isolation, no association with aneuploidy. 3. Calcification seen adjacent to the stomach. Short-term followup is recommended. 4. Mild renal pyelectasis and spine not well seen. Followup recommended. 5. Decrease in size of lower uterine segment subchorionic hematoma. Continued followup recommended. Dictated by: Jorge ANDRE Interpreted: Therese Chaves MD on 04/07/2019 at 17:27 Approved by: Therese Chaves M.D. on 04/07/2019 at 17:59
== END ==
PROVIDERS: PCP Family Medicine; Visit Provider Family Medicine
DX: Z36.89 Encounter for other specified antenatal screening (principal); Z3A.19 19 weeks gestation of pregnancy
CPT/HCPCS: 76811

== ENCOUNTER → 2019-06-02 10:54 | Outpatient (CLI) | payer OTHER, SELFPAY ==
[2019-06-02 12:32] LABS: Hematocrit 37.4 % (36-46)
[2019-06-02 13:08] LABS: GTT (PREG) 1 Hour PP 50gm Dose 133 mg/dL (76-139)
== END ==
PROVIDERS: PCP Family Medicine; Visit Provider Family Medicine
DX: Z34.82 Encounter for supervision of other normal pregnancy, second trimester (principal); Z3A.24 24 weeks gestation of pregnancy
CPT/HCPCS: 36415; 82950; 85014; 85018

== ENCOUNTER → 2019-06-23 10:53 | Outpatient (CLI) | payer OTHER, SELFPAY ==
--- NOTE | 2019-06-23 10:54 | DI.US.S_ITS ---
PROCEDURE: US OB FOLLOW UP INDICATIONS: RE-EVALUATION OUTSIDE/PRIOR DATING DATA: Last menstrual period (LMP): 11/22/18. LMP-based estimated date of delivery (SACHIN): 08/29/19. First dating scan (date and location): 01/25/19. Estimated date of delivery (SACHIN) from first dating scan: 08/29/19. TECHNIQUE: Real-time scanning was performed of the fetus, with image documentation and biometric measurements. COMPARISON: [facility], , OB >= 14 WEEKS FETUS, 04/07/2019, 8:20. FINDINGS: General: A single living intrauterine gestation is present. Presentation: Vertex. Placenta: Placental position is anterior, without previa. No subchorionic hematoma identified. Amniotic fluid index: 19.6 cm, normal range is 5-24 cm. heart rate: 120 beats per minute. Maternal cervical canal: 3.3 cm long. Normal lower limit is 2.5 cm. biometrics: Biparietal diameter: 31 weeks 4 days Head circumference: 32 weeks Abdominal circumference: 30 weeks 3 days Femur length: 29 weeks 6 days Estimated gestational age from initial scan: 30 weeks 3 days Composite gestational age from present scan: 31 weeks Estimated weight and percentile: 1576 g; 38 percentile Measurement variability for biometric dating: +/- 7 days from 14 weeks to 15 weeks 6 days gestation, +/- 10 days from 16 weeks to 21 weeks 6 days gestation, +/- 2 weeks from 22 weeks to 27 weeks 6 days gestation, +/- 3 weeks for 28 weeks gestation or later. weight reference: 4500 g or EFW >90/95% is considered macrosomia or large for gestational age. EFW <10% is small for gestational age. EFW 5% or less is considered intra-uterine growth restriction. Other: The spine is again not well seen. Choroid plexus cyst have resolved. No calcification seen adjacent to the stomach. No stomach debris. Moderate right maternal hydronephrosis redemonstrated. IMPRESSION: 1. Single living IUP redemonstrated and interval growth is normal. 2. spine again not well-visualized. Followup recommended. 3. Choroid plexus cysts have resolved as well as the questionable calcification adjacent to the stomach. 4. Resolved subchorionic hematoma. 5. Moderate maternal left hydronephrosis again visualized which appears similar to prior examination. Dictated by: Jorge ANDRE Interpreted: Geraldine Feldman MD on 06/23/2019 at 15:44 Approved by: Geraldine Feldman MD, PhD on 06/23/2019 at 16:21
== END ==
PROVIDERS: PCP Family Medicine; Visit Provider Family Medicine
DX: Z36.2 Encounter for other antenatal screening follow-up (principal); O99.89 Other specified diseases and conditions complicating pregnancy, childbirth and the puerperium; N13.30 Unspecified hydronephrosis; Z3A.31 31 weeks gestation of pregnancy
CPT/HCPCS: 76816

== ENCOUNTER → 2019-08-06 12:54 | Outpatient (CLI) | payer OTHER, SELFPAY ==
[2019-08-07 08:18] LABS: Strep Grp B PCR NEG for Grp B Strep
== END ==
PROVIDERS: PCP Family Medicine; Visit Provider Family Medicine
DX: Z34.83 Encounter for supervision of other normal pregnancy, third trimester (principal); Z3A.36 36 weeks gestation of pregnancy
CPT/HCPCS: 87653

== ENCOUNTER 2019-08-28 17:59 | Inpatient (IN) | payer OTHER, SELFPAY ==
[2019-08-28] MEDS: LACTATED RINGERS 1,000 ML 100 ML IV (18:20)
[2019-08-28] MEDS: OXYTOCIN 10 UNIT/ML VIAL IM (18:29)
[2019-08-28] MEDS: OXYTOCIN PREMIX 30 UNIT/500 ML PLAST..BAG 999 UNIT IV (18:30)
[2019-08-28 18:38] LABS: Add Manual Diff / Slide Review NO; Basophils Absolute Auto 100 /uL (0-100); Basophils Percent Auto 0.6 % (0-2); Eosinophils Absolute Auto 0 /uL (0-450); Eosinophils Percent Auto 0.2 % (2-4); Hematocrit 43.1 % (36-46); Hemoglobin 14.7 g/dL (12.0-16.0); Lymphocytes Absolute Auto 2400 /uL (1100-4500); Lymphocytes Percent Auto 20.7 % (25-40); Mean Corpuscular HGB Conc 34.1 % (30-36); Mean Corpuscular Hemoglobin 32.2 PG (26-34); Mean Corpuscular Volume 94.3 fL (80-100); Monocytes Absolute Auto 900 /uL (0-900); Monocytes Percent Auto 7.5 % (3-14); Neutrophils Absolute Auto 8100 /uL (1500-7000); Platelet Count 187 X10^3/uL (150-400); Red Blood Cell Count 4.58 X10^6/uL (4.0-5.2); Red Cell Distribution Width 12.8 % (11.6-14.8); White Blood Cell Count 11.4 X10^3/uL (4.5-11.0)
[2019-08-28] MEDS: METHYLERGONOVINE 0.2 MG/ML VIAL IM (18:55)
--- NOTE | 2019-08-28 19:03 | PM.HP.1 ---
History of Present Illness History of Present Illness Date Patient Seen: 08/28/19 Time Patient Seen: 19:04 Chief complaint: Narrative: 28-year-old female G3 para 2 with an estimated due date of 08/29/2019 consistent with LMP and multiple early ultrasounds patient is 39 weeks and 6 7 stage gestational age. Patient presents to Labor and delivery floor in active labor. Patient had rupture of membranes in the car on the way to the labor and delivery floor. Construction started approximately 24 hours ago. Intermittent throughout the day and night. In became quite hard this afternoon. She says she was feeling fine. No fever no chills. Came to the Center and was found to be complete. Check parents state that amniotic fluid was clear. care was established at 9 weeks 3 days gestational age. Care was complicated by subchorionic hemorrhage early during which was moderate in size. Which impacted the . Past history includes for retained placenta with a have reads had received blood transfusion. 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 Patient had follow with maternal medicine during her early part of the due to her subchorionic hemorrhage. Baby's weight and growth is followed through the with ultrasounds. Baby had good growth through the . labs showed O-positive blood type antibody screen negative CBC 40.6 platelet count 254 VDRL nonreactive urine culture negative hepatitis-B surface antigen negative HIV negative rubella immune varicella immune GBS status negative. Past medical history patient has a history of latex allergy gluten allergy kidney stones Past surgical history wisdom teeth D and C and cystoscope with stent Patient History Medical History Acne (Chronic) Bladder prolapse (Chronic ~2015) Blood clotting disorder (Chronic) Chicken pox (Resolved) Irregular menstrual cycle (Chronic ~2012) Kidney stones (Resolved ~2010) Surgical History Anesthesia (Resolved) History of cystoscopy (Resolved ~07/2010) hemorrhage (Resolved ~04/2017) Family & Social History Family History Father Hypertension Hyperlipidemia Mother Cancer Grandfather No problems noted. Grandfather No problems noted. Tobacco & Substance use: Smoking Status Never smoker Meds Home Medications and Allergies Home Medications Medication Instructions Recorded Confirmed Type cholecalciferol (vitamin D3) 125 5,000 unit PO DAILY 01/21/19 08/27/19 History mcg (5,000 unit) capsule prenat.vits,rory,mgn-[id number] 1 tab PO DAILY 01/21/19 08/27/19 History Allergies Allergy/AdvReac Type Severity Reaction Status Date / Time gluten AdvReac Intermediate GI upset Verified 08/27/19 15:28 dairy AdvReac Intermediate GI upset Uncoded 08/27/19 15:28 Exam Narrative Exam Narrative: . General: Alert no apparent distress. Affect is appropriate. Marya it is uncomfortable. HEENT: Neck is supple without lymphadenopathy pupils equal round and reactive. Cardio: S1-S2 regular rate and rhythm. Respiratory: Lungs clear to auscultation. Abdomen: Gravid. Extremities: Normal deep tendon reflexes trace edema. [place]: Marya every 2-3 minutes heart tones: heart tones reactive category 1 Objective Labs Result Diagrams: 08/28/19 18:20 Labs: Laboratory Results - last 24 hr 08/28/19 18:20 WBC 11.4 H RBC 4.58 Hgb 14.7 Hct 43.1 MCV 94.3 MCH 32.2 MCHC 34.1 RDW 12.8 Plt Count 187 Neut % (Auto) 71.0 Lymph % (Auto) 20.7 L [place] % (Auto) 7.5 Eos % (Auto) 0.2 L Baso % (Auto) 0.6 Neut # (Auto) 8100 H Lymph # (Auto) 2400 [place] # (Auto) 900 Eos # (Auto) 0 Baso # (Auto) 100 Assessment & Plan Assessment & Plan narrative: 28-year-old G3 para 05417 weeks consistent with LMP and multiple ultrasounds in active labor complete and pushing. IV was started. Blood work was taken. Patient would like to proceed with natural childbirth. Vital signs are stable heart tones are category 1. Inpatient orders were written for an expected management. The patient consents orders were signed by 1 of my partners as I was in the room working on delivering the baby.
--- NOTE | 2019-08-28 19:11 | PM.PROC.1 ---
Procedures Date/Time Date of procedure: 08/28/19 Time of procedure: 19:11 General Procedure description: Stage I of labor. Patient states approximately 12 hours of active labor. Patient presented to the center with rupture membranes complete. heart tones on initial presentation to the center were category 1. Patient reports having no problems with significant labor pains she was afebrile feeling well with clear amniotic fluid rupture at home. Stage II of labor. Approximately 5 minutes. Category 1 tracing. Patient delivered female infant in the vertex position without difficulty. Patient was on hands and knees position. After delivery of the head. Deliver the shoulders without difficulty without nuchal cord. Baby had spontaneous cry. Mother then was placed on her back and baby was placed on abdomen. Stage III of labor. Cord was cut transected. She was given 10 units of IM Pitocin. Red delivery of intact placenta with three-vessel cord. She was them and given 30 units of Pitocin in the bag plus Methergine. She has a history of hemorrhage and retained placenta. Inspection of the placenta revealed a it was complete. Inspection of the vagina sowed no lacerations. Mom and baby were resting comfortably.
[2019-08-28] MEDS: IBUPROFEN 600 MG TABLET PO (23:09)
--- NOTE | 2019-08-29 08:22 | P.DS_ITS ---
History of Present Illness History of Present Illness Chief complaint: Narrative: 28-year-old female G3 para 2 with an estimated due date of 08/29/2019 consistent with LMP and multiple early ultrasounds patient is 39 weeks and 6 7 stage gestational age. Patient presents to Labor and delivery floor in active labor. Patient had rupture of membranes in the car on the way to the labor and delivery floor. Construction started approximately 24 hours ago. Intermittent throughout the day and night. In became quite hard this afternoon. She says she was feeling fine. No fever no chills. Came to the Center and was found to be complete. Check parents state that amniotic fluid was clear. care was established at 9 weeks 3 days gestational age. Care was complicated by subchorionic hemorrhage early during which was moderate in size. Which impacted the . Past history includes for retained placenta with a have reads had received blood transfusion. 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 Patient had follow with maternal medicine during her early part of the due to her subchorionic hemorrhage. Baby's weight and growth is followed through the with ultrasounds. Baby had good growth through the . labs showed O-positive blood type antibody screen negative CBC 40.6 platelet count 254 VDRL nonreactive urine culture negative hepatitis-B surface antigen negative HIV negative rubella immune varicella immune GBS status negative. Past medical history patient has a history of latex allergy gluten allergy kidney stones Past surgical history wisdom teeth D and C and cystoscope with stent Discharge Providers Provider Date of admission: 08/28/19 17:59 Discharge Date: 08/29/19 Primary care physician: Atif Boone MD Consults: 08/29/19 19:10 Consult to Readiness Paraprofessional Routine Comment: Discharge provider: Atif Boone MD Summary Hospital Course Discharge Diagnosis: Delivery a viable female vaginally without complications History of hemorrhage. Mild bleeding given Methergine and Pitocin Hospital Course: Routine care Exam Narrative Exam Narrative: General: Alert no apparent distress. Affect is appropriate. Marya it is uncomfortable. HEENT: Neck is supple without lymphadenopathy pupils equal round and reactive. Cardio: S1-S2 regular rate and rhythm. Respiratory: Lungs clear to auscultation. Abdomen: Uterus firm. Extremities: Normal deep tendon reflexes trace edema. Objective Labs Result Diagrams: 08/28/19 18:20 Labs: Laboratory Results - last 24 hr 08/28/19 08/28/19 18:20 18:20 WBC 11.4 H RBC 4.58 Hgb 14.7 Hct 43.1 MCV 94.3 MCH 32.2 MCHC 34.1 RDW 12.8 Plt Count 187 Neut % (Auto) 71.0 Lymph % (Auto) 20.7 L [place] % (Auto) 7.5 Eos % (Auto) 0.2 L Baso % (Auto) 0.6 Neut # (Auto) 8100 H Lymph # (Auto) 2400 [place] # (Auto) 900 Eos # (Auto) 0 Baso # (Auto) 100 Blood Type O Positive Antibody Screen Negative Discharge Plan Discharge Plan Patient Disposition: Home Discharge orders & Medications Prescriptions: New docusate sodium [DOK] 100 mg Capsule 100 mg PO DAILY Qty: 20 RF: 0 ibuprofen 600 mg Tablet 600 mg PO Q6HR PRN (Reason: Pain, Mild (1-3)) Qty: 30 RF: 0 Continued prenat.vits,rory,sxv-qjte-agawm tablet 1 tab PO DAILY RF: 0 cholecalciferol (vitamin D3) 5,000 unit capsule 5,000 unit PO DAILY RF: 0 Follow up/Referrals: Atif Boone MD [Primary Care Provider] - (please call to make an appointment on SaturdayAugust 31.) Visit Report/Discharge Packet Stand Alone Forms: Discharge: Care Visit Report Forms: Patient Portal/API, Stroke Signs & Symptoms Discharge Data Primary Care Provider: Atif Boone Discharges patient from system. Discharge Date/Time: 08/29/19 15:42
[2019-08-29] MEDS: DOCUSATE 100 MG CAPSULE PO (10:57)
[2019-08-29] MEDS: LANOLIN OINT 7 GM 1 APPLIC TOP (11:13)
[2019-08-29 13:53] VITALS: BP 114/76; PULSE 88; RESP 17; TEMP 36.7
== END 2019-08-29 15:42 | disposition home or self-care (01) | DRG 807 ==
PROVIDERS: Admitting Provider Obstetrics & Gynecology; PCP Family Medicine; Referring Provider Obstetrics & Gynecology; Visit Provider Obstetrics & Gynecology
DX: O80 Encounter for full-term uncomplicated delivery (principal); Z37.0 Single live birth; Z3A.39 39 weeks gestation of pregnancy
CPT/HCPCS: 59050; 59410; 85025; 86850; 86900; 86901; G0378; G0379; J2210; J2590

== ENCOUNTER → 2019-09-04 15:20 | Outpatient (CLI) | payer OTHER, SELFPAY ==
--- NOTE | 2019-09-04 15:20 | DI.US.S_ITS ---
PROCEDURE: US PELVIC COMPLETE INDICATIONS: BLEEDING AFTER DELIVERY TECHNIQUE: Real-time scanning was performed of the pelvic organs, with image documentation. Additional endovaginal scanning was necessary due to incomplete visualization of the adnexal and endometrial structures by transabdominal scanning. COMPARISON: None. FINDINGS: Transabdominal scanning: Limited scanning through the kidneys shows no hydronephrosis. No pathologic free abdominal or pelvic fluid. Endovaginal scanning: Uterus: The uterus is anteverted and retroflexed and noted to be enlarged, measuring 11.8 x 7.5 x 12.2 cm. No focal myometrial lesions are identified. The endometrium is moderately heterogeneous and noted to be thickened measuring up to at least 15 mm. Debris within the uterine cavity appears to be present. Areas of increased vascularity along the periphery of the endometrium is evident. The cervix is not adequately seen. Ovaries: The left ovary measures 3.9 x 1.6 x 2.6 cm and appears to be within normal limits. The right ovary was not definitely seen. No right adnexal abnormality is appreciated. IMPRESSION: 1. Heterogeneous endometrial thickening probably represents debris and/or hemorrhage. No definitive retained products of conception are appreciated. If the patient's bleeding persists, please consider followup endovaginal pelvic imaging. 2. Mild increased vascularity to the periphery of the endometrium is nonspecific. Clinical correlation to exclude endometritis recommended. on 09/04/2019 at 16:04 Dictated by: Andrew Brown M.D. on 09/04/2019 at 16:01 Approved by: Andrew Brown M.D.
== END ==
PROVIDERS: PCP Family Medicine; Referring Provider Family Medicine; Visit Provider Family Medicine
DX: O73.1 Retained portions of placenta and membranes, without hemorrhage (principal)
CPT/HCPCS: 76856